=== PATIENT | female | born 1975 | race Caucasian/White ===

== ENCOUNTER 2018-05-28 14:54 | Emergency (ER) | payer OTHER, SELFPAY ==
[2018-05-28 15:13] VITALS: BP 140/82; PULSE 92; RESP 15; TEMP 36.5; O2SAT 100; BMI 39.9
[2018-05-28] MEDS: TET,DIPH,PERTUSS(ACELL),VAC/PF 0.5 ML SYRINGE IM (15:23)
--- NOTE | 2018-05-28 15:28 | ED_ITS ---
HPI - Wound/Laceration General Chief Complaint: Wound/Laceration Stated Complaint: LACERATION OF LEFT SIDE OF FACE NEAR LIP Time Seen by Provider: 05/28/18 15:14 Source: patient Mode of arrival: ambulatory Limitations: no limitations History of Present Illness HPI narrative: Patient is a 42-year-old female who presents with all lip laceration[place] and a noticeable hit her in the lip. No loose teeth. Bleeding is now controlled. Onset (ago): minute(s) Location: face Related Data Allergies Allergy/AdvReac Type Severity Reaction Status Date / Time No Known Drug Allergies Allergy Verified 05/28/18 15:13 Review of Systems Review of Systems GENERAL: Denies chills,fever HEENT: Denies throat pain RESPIRATORY: Denies dyspnea, cough, wheezing CARDIOVASCULAR: Denies chest pain, palpitations GASTROINTESTINAL: Denies nausea, vomiting MUSCULOSKELETAL: Denies extremity pain, injury SKIN: See HPI NEUROLOGIC: Denies weakness, dizziness, headache, numbness 8 point review of systems is negative except for those stated above and HPI PFSH Social History Smoking Status: Never smoker Exam Initial Vital Signs Initial Vital Signs: Vital Signs Temperature 97.7 F 05/28/18 15:13 Pulse Rate 92 H 05/28/18 15:13 Respiratory Rate 15 05/28/18 15:13 Blood Pressure 140/82 05/28/18 15:13 Pulse Oximetry 100 05/28/18 15:13 GENERAL: Well-appearing, well-nourished and in no acute distress. CARDIOVASCULAR: peripheral pulses in tact, cap refill <2 sec RESPIRATORY: No respiratory distress, speaks in full sentences without difficulty EXTREMITIES: Normal range of motion, no clubbing or edema. Neurovascularly intact NEUROLOGICAL: Cranial nerves II through XII grossly intact. Normal gait and speech. SKIN: Warm, dry, no petechiae, no rashes or lesions. Skin Lip and Oral Cavity: 2 1. 1 cm laceration through vermilion border. Does not go completely through Procedures Laceration Repair Laceration 1: Site: lip Side (If applicable): left Size (cm): 1 Description: linear and involves imer border Depth: simple, single layer Local Anesthetic: lidocaine 2% Amount of anesthesia used (mL): 1 Pre-repair: wound explored and irrigated extensively Skin layer closed with: other (Chromic gut) Size (cm): 6-0 Number of sutures: 2 Course Orders Ordered: Discontinued Medications Diphtheria/Tetanus/Acell Pertussis (Adacel) 0.5 ml IM .ONCE ONE Stop: 05/28/18 15:22 Last Admin: 05/28/18 15:23 Dose: 0.5 ml Vital Signs - 8 hr 05/28/18 15:13 Temperature 97.7 F Pulse Rate 92 H Respiratory Rate 15 Blood Pressure 140/82 Pulse Oximetry 100 Discharge Plan Departure Patient Disposition: Home Clinical Impression: Laceration of lip Instructions: DI for Laceration Repair Activity Restrictions/Additional Instructions: 1. Sutures should dissolve in 1-2 weeks, put Neosporin on it 1-2 times daily to help with and I 2. No soaking in water including dishes, bathtubs, Lakes, swimming pools etc -may clean with soap and water, may shower normal 3. Signs of infection include, but not limited to, increased redness, increased swelling, increased pain, fever and purulent drainage, if the symptoms should arise, you may need an antibiotic and you should have a reevaluation either by your primary care provider or by the emergency department. Referrals: Kristel Crook MD [Physician] -
[2018-05-28 16:22] VITALS: BP 110/72; PULSE 89; RESP 16; O2SAT 99
--- NOTE | 2018-06-02 16:15 | PC.NURSE ---
Pt is feeling much better following ED visit. Pt has nothing that we could improve on,pt states I have been to a lot of hospitals and you all took very good care of me.
== END 2018-05-28 16:24 | disposition home or self-care (01) ==
PROVIDERS: Emergency Provider Emergency Medicine
DX: S01.81XA Laceration without foreign body of other part of head, initial encounter (principal); W22.8XXA Striking against or struck by other objects, initial encounter
CPT/HCPCS: 12011; 90471; 99282; 99283; 90715

== ENCOUNTER 2019-02-03 17:13 | Emergency (ER) | payer OTHER, SELFPAY ==
[2019-02-03 17:31] VITALS: BP 134/81; PULSE 86; RESP 19; TEMP 36.8; O2SAT 100; BMI 44.2
[2019-02-03] MEDS: CYCLOBENZAPRINE 10 MG TABLET PO (17:40)
[2019-02-03] MEDS: KETOROLAC 60 MG/2 ML VIAL IM (17:40)
--- NOTE | 2019-02-03 17:48 | ED.BACK ---
HPI - Back Pain/Injury <RAFY Owens - Last Filed: 02/03/19 19:01> General Chief Complaint: Back Pain/Injury Stated Complaint: back pain Time Seen by Provider: 02/03/19 17:29 Source: patient Mode of arrival: ambulatory Limitations: no limitations History of Present Illness HPI Narrative: The patient is a 43-year-old female nonsmoker with history of hysterectomy who presents with a chief complaint of back pain. She states she is having pain on the sides of her back and the lumbar and thoracic region. She states she has been moving, heavy lifting her belongings over the past several days. She thinks she tweaked her back yesterday, and it was worse when she woke up today. She took ibuprofen this morning at 9:00 a.m. and Tylenol at 3:00 p.m. she has continued moving her belongings. She denies any numbness, tingling, incontinence, incontinence of bowel or bladder, saddle anesthesia. She denies any weakness. She states that standing up is more painful than lying flat on her back. She states twisting is painful. She denies any previous back injury. Related Data Home Medications Medication Instructions Recorded Confirmed Allergy 1 tab PO DAILY PRN 02/03/19 02/03/19 bupropion HCl 300 mg PO QAM 02/03/19 02/03/19 dextroamphetamine-amphetamine 30 mg PO BID 02/03/19 02/03/19 [Adderall XR] lamotrigine 150 mg PO DAILY 02/03/19 02/03/19 Previous Rx's Medication Instructions Recorded cyclobenzaprine 10 mg PO TID PRN #30 tab 02/03/19 ketorolac 10 mg PO QID PRN 5 Days #20 tab 02/03/19 Allergies Allergy/AdvReac Type Severity Reaction Status Date / Time Sulfa (Sulfonamide Allergy Verified 02/03/19 17:31 Antibiotics) Review of Systems <RAFY Owens - Last Filed: 02/03/19 19:01> Review of Systems GENERAL: Denies chills, fatigue, malaise, fever, sweats. HEENT: Denies sinus pain, ear pain, sore throat, difficulty swallowing, dizziness. RESPIRATORY: Denies dyspnea, cough, wheezing, hemoptysis, sputum. CARDIOVASCULAR: Denies chest pain, palpitations, orthopnea, edema, GASTROINTESTINAL: Denies nausea, vomiting, abdominal pain, diarrhea, constipation, melena. : Denies dysuria, frequency, incontinence, hematuria, urinary retention. MUSCULOSKELETAL: See HPI SKIN: Denies rash, skin lesions, or other NEUROLOGIC: Denies weakness, headache, numbness, change in speech, confusion, seizures, incoordination. PSYCHIATRIC: No concerning psychosocial issues. 12 point review of systems is negative except for those stated above PFSH <RAFY Owens - Last Filed: 02/03/19 19:01> Medical History (Updated 02/03/19 @ 18:19 by RAFY Owens) History of hysterectomy (Acute) Social History Smoking Status: Never smoker Social History Smoking Status: Never smoker Exam <RAFY Owens - Last Filed: 02/03/19 19:01> Narrative Exam Narrative: GENERAL: This is a well-nourished, well-developed patient, appears uncomfortable HEAD: Atraumatic. Normocephalic. No temporal or scalp tenderness. EYES: Pupils equal round and reactive. Extraocular motions intact. No scleral icterus. No injection or drainage. ENT: Nose without bleeding, purulent drainage or septal hematoma. Throat without erythema, tonsillar hypertrophy or exudate. Uvula midline. Airway patent. NECK: Trachea midline. No JVD or lymphadenopathy. Supple, nontender, no meningeal signs. CARDIOVASCULAR: Regular rate and rhythm without murmurs, gallops, or rubs. RESPIRATORY: Clear to auscultation. Breath sounds equal bilaterally. No wheezes, rales, or rhonchi. No cough. No increased respiratory effort. No accessory muscle use. GASTROINTESTINAL: Abdomen soft, non-tender, nondistended. No hepato-splenomegaly, or palpable masses. No guarding. EXTREMITIES: No clubbing, cyanosis, or edema. No joint tenderness, effusion, or edema noted. BACK: Nontender without deformity or crepitance. No flank tenderness. No pain to see T or L-spine palpation. Pain to bilateral paraspinal muscle palpation in lumbar region. NEURO: AOx3. SKIN: No rash or erythema. No erythema ecchymosis rash or abrasion noted on back Initial Vital Signs Initial Vital Signs: Vital Signs Temperature 98.3 F 02/03/19 17:31 Pulse Rate 86 02/03/19 17:31 Respiratory Rate 19 02/03/19 17:31 Blood Pressure 134/81 02/03/19 17:31 Pulse Oximetry 100 02/03/19 17:31 <Nandini Agarwal DO - Last Filed: 02/03/19 19:21> Initial Vital Signs Initial Vital Signs: Vital Signs Temperature 98.3 F 02/03/19 17:31 Pulse Rate 86 02/03/19 17:31 Respiratory Rate 19 02/03/19 17:31 Blood Pressure 134/81 02/03/19 17:31 Pulse Oximetry 100 02/03/19 17:31 Course <RAFY Owens - Last Filed: 02/03/19 19:01> Orders Ordered: Discontinued Medications Cyclobenzaprine HCl (Flexeril) 10 mg PO NOW ONE Stop: 02/03/19 17:38 Last Admin: 02/03/19 17:40 Dose: 10 mg Ketorolac Tromethamine (Toradol) 60 mg IM NOW ONE Stop: 02/03/19 17:38 Last Admin: 02/03/19 17:40 Dose: 60 mg Vital Signs - 8 hr 02/03/19 17:31 02/03/19 18:20 Temperature 98.3 F Pulse Rate 86 68 Respiratory Rate 19 17 Blood Pressure 134/81 Blood Pressure [Left Arm] 126/75 Pulse Oximetry 100 100 <Nandini Agarwal DO - Last Filed: 02/03/19 19:21> Orders Ordered: Discontinued Medications Cyclobenzaprine HCl (Flexeril) 10 mg PO NOW ONE Stop: 02/03/19 17:38 Last Admin: 02/03/19 17:40 Dose: 10 mg Ketorolac Tromethamine (Toradol) 60 mg IM NOW ONE Stop: 02/03/19 17:38 Last Admin: 02/03/19 17:40 Dose: 60 mg Vital Signs - 8 hr 02/03/19 17:31 02/03/19 18:20 Temperature 98.3 F Pulse Rate 86 68 Respiratory Rate 19 17 Blood Pressure 134/81 Blood Pressure [Left Arm] 126/75 Pulse Oximetry 100 100 MDM - Back Pain/Injury <RAFY Owens - Last Filed: 02/03/19 19:01> MDM Narrative Medical decision making narrative: The patient is a 43-year-old female who presents with mechanical back pain after bathing. She declines any x-rays, which I am okay with that she does not have any midline tenderness to palpation. She improved greatly with a dose of IM Toradol as well as Flexeril. She states her pain was much improved, and declined any further treatment in the ER. She does not want any narcotic or [place] prescriptions. I discussed at length return precautions of incontinence of bowel, incontinence of bladder or saddle anesthesia. Encourage patient to follow up with her PCP in the next few days. Discussed return precautions to ER. Patient has no questions or concerns upon discharge. Discharge Plan Departure Patient Disposition: Home Clinical Impression: Lumbar paraspinal muscle spasm Strain of lumbar region Qualifiers: Encounter type: initial encounter Qualified Code(s): S39.012A - Strain of muscle, fascia and tendon of lower back, initial encounter Discharge Date/Time: 02/03/19 18:27 Interventions: ED Discharge Assessment Last Done: 02/03/19 18:27 Instructions: DI for Back Spasm, DI for Back Strain or Sprain Activity Restrictions/Additional Instructions: Please follow up with your primary care provider in the next few days. I have given you a prescription of Toradol which is an NSAID. Do not combine with other NSAIDs. I have given her prescription of Flexeril, which is a muscle relaxer. Please come back to the emergency department for any acute concerns such as incontinence of bowel, incontinence of bladder or saddle anesthesia. Please follow up with your primary care provider in the next few days. Prescriptions: New cyclobenzaprine 10 mg tablet 10 mg PO TID PRN (Reason: muscle spasm) Qty: 30 RF: 0 ketorolac 10 mg tablet 10 mg PO QID PRN (Reason: pain) 5 Days Qty: 20 RF: 0 No Action Allergy 1 tab PO DAILY PRN (Reason: Allergy Symptoms) RF: 0 lamotrigine 150 mg Tablet 150 mg PO DAILY RF: 0 dextroamphetamine-amphetamine [Adderall XR] 30 mg Capsule,Extended Release 24hr 30 mg PO BID RF: 0 bupropion HCl 300 mg Tablet Extended Release 24 Hr 300 mg PO QAM RF: 0 Referrals: Kristel Crook MD [Physician] - <Nandini Agarwal DO - Last Filed: 02/03/19 19:21> Cosign ED Attending Cosignature Attestation: I was immediately available in the department for consultation. This documentation has been reviewed and I agree with assessment and plan. Supervised by Nandini Agarwal, DO
[2019-02-03 18:20] VITALS: BP 126/75; PULSE 68; RESP 17; O2SAT 100
== END 2019-02-03 18:27 | disposition home or self-care (01) ==
PROVIDERS: Emergency Provider Nurse Practitioner Family
DX: M62.830 Muscle spasm of back (principal); S39.012A Strain of muscle, fascia and tendon of lower back, initial encounter; X50.9XXA Other and unspecified overexertion or strenuous movements or postures, initial encounter
CPT/HCPCS: 96372; 99282; 99283; J1885

== ENCOUNTER 2022-03-17 18:54 | Emergency (ER) | payer OTHER, SELFPAY ==
[2022-03-17 19:26] VITALS: BP 132/87; PULSE 98; RESP 18; TEMP 37.1; O2SAT 97
[2022-03-17 20:07] LABS: COVID19 -Nasal RAPID POSITIVE (Negative)
--- NOTE | 2022-03-17 20:56 | ED_ITS ---
HPI - URI/Sore Throat General Chief Complaint: Upper Respiratory Symptoms Stated Complaint: COVID+ CHEST FEELS ON FIRE PRESSURE Time Seen by Provider: 03/17/22 20:47 Source: patient Mode of arrival: Ambulatory History of Present Illness HPI Narrative: 46-year-old female nonsmoker with history of ADHD presents with known COVID diagnosis in the chief complaint of multiple upper respiratory symptoms including runny nose, nasal congestion, sore throat any dry hacking cough. Her biggest concern today is not of any significant difficulty in breathing or sputum production but a burning sensation when she takes a deep breath. She is not dizzy nor weak or lightheaded. She denies GI symptoms such as nausea, vomiting or diarrhea Related Data Home Medications Medication Instructions Recorded Confirmed Allergy 1 tab PO DAILY PRN Allergy Symptoms 02/03/19 02/03/19 bupropion HCl 300 mg 24 hr tablet, 300 mg PO QAM 02/03/19 02/03/19 extended release dextroamphetamine-amphetamine ER 30 mg PO BID 02/03/19 02/03/19 30 mg 24hr capsule,extend release (Adderall XR) lamotrigine 150 mg tablet 150 mg PO DAILY 02/03/19 02/03/19 Previous Rx's Medication Instructions Recorded cyclobenzaprine 10 mg tablet 10 mg PO TID PRN muscle spasm #30 02/03/19 tabs Allergies Allergy/AdvReac Type Severity Reaction Status Date / Time Sulfa (Sulfonamide Allergy Verified 02/03/19 17:31 Antibiotics) Review of Systems Review of Systems Narrative: GENERAL: See HPI HEENT: See HPI RESPIRATORY: See HPI CARDIOVASCULAR: Denies chest pain, palpitations, orthopnea, edema, GASTROINTESTINAL: See HPI : Denies dysuria, frequency, incontinence, hematuria, urinary retention. MUSCULOSKELETAL: denies weakness, joint pain, or bony pain SKIN: Denies rash, skin lesions, or other NEUROLOGIC: Denies weakness, headache, numbness, change in speech, confusion, seizures, incoordination. PSYCHIATRIC: No concerning psychosocial issues. 12 point review of systems is negative except for those stated above Patient History Surgical History History of hysterectomy Social History Smoking Status: Never smoker Smoking Status: Never smoker alcohol intake frequency: 0-2 drinks per day Substance Use Type: does not use Exam Narrative Exam Narrative: GENERAL: [46] year old patient appears stated age. Well-developed patient, in mild distress. HEAD: Atraumatic. Normocephalic. EYES: Pupils equal round and reactive. Extraocular motions intact. No scleral icterus. No injection or drainage. ENT: Nose without bleeding, purulent drainage. Throat without erythema, tonsillar hypertrophy or exudate. Airway patent. NECK: Trachea midline. Non tender CARDIOVASCULAR: Regular rate and rhythm without murmurs, gallops, or rubs. RESPIRATORY: Clear to auscultation. Breath sounds equal bilaterally. No wheezes, rales, or rhonchi. GASTROINTESTINAL: Abdomen soft, non-tender, nondistended. EXTREMITIES: No edema or joint tenderness. BACK: Nontender without deformity or crepitance. No flank tenderness. NEURO: AOx3. SKIN: No rash or erythema of visible areas Initial Vital Signs Initial Vital Signs: Vital Signs Temperature 98.8 F 03/17/22 19:26 Pulse Rate 98 H 03/17/22 19:26 Respiratory Rate 18 03/17/22 19:26 Blood Pressure 132/87 03/17/22 19:26 Pulse Oximetry 97 03/17/22 19:26 Oxygen Delivery Method 03/17/22 19:26 Course Orders Ordered: ED Orders 03/17/22 19:32 COVID19 -Nasal RAPID/Pre-Proc Stat Vital Signs Vital signs: Vital Signs - 8 hr 03/17/22 19:26 Temperature 98.8 F Pulse Rate 98 H Respiratory Rate 18 Blood Pressure 132/87 Pulse Oximetry 97 Oxygen Delivery Method Room Air MDM - URI/Sore Throat Lab Data Labs: Lab Results 03/17/22 Range/Units 19:32 SARS-CoV-2 (PCR) Positive H (Negative) MDM Narrative Medical decision making narrative: Patient has a very reassuring history and physical exam with classic presentation of COVID. She has no respiratory distress, need for supplemental oxygen or significant GI symptoms. She is been given reassurance, return precautions discussed and questions answered to her apparent satisfaction Discharge Plan Departure Patient Disposition: Home Clinical Impression: COVID-19 Instructions: DI for COVID-19 (Suspected or Confirmed ) Activity Restrictions/Additional Instructions: *You have been diagnosed with [ COVID-19] *What to do: ?* per recommendations from the CDC and the [facility] Department of Health ?* stay home except to get medical care. ?Restrict activities outside your home, except for getting medical care. ?Do not go to work, school, or public areas. ?Avoid using public transportation, ride sharing, or taxis. ?* separate yourself from other people in your home. ?* call ahead before visiting your doctor ?* Wear a facemask ?* Cover your coughs and sneezes ?* Clean your hands often ?* Avoid sharing household items ?* Clean all high-touch services every day ?* Monitor your symptoms and seek prompt medical attention if your illness is worsening, particularly with difficulty in breathing. You may discontinue your isolation when: ?1. You have been fever-free for at least 24 hours without the use of fever reducing medication, AND ?2. Your symptoms are getting better, AND ?3. At least 5 days have passed since symptoms first appeared ?4. If you have fever, continue to stay home until fever resolves Individuals with laboratory confirmed COVID-19 who have not had any symptoms may discontinue home isolation when at least 5 days have passed since the date of their first COVID-19 diagnostic test and have had no subsequent illness You should notifiy any friends and family that have been in close contact *If up to date on COVID Vaccines, then they do not need to quarantine unless symptoms develop. Get tested on day 5 (or sooner if symptoms develop). Take precautions and watch for symptoms until day 10 *If NOT up to date on COVID Vaccines, then CDC recommends quarantine for at least 5 full days. Wear a well fitted mask at home if you must be around others. If they ?develop symptoms they should get tested. If they remain asymptomatic they should get tested on day 5. They should take precautions and monitor for symptoms until day 10. Prescriptions: No Action Allergy 1 tab PO DAILY PRN (Reason: Allergy Symptoms) lamotrigine 150 mg Tablet 150 mg PO DAILY dextroamphetamine-amphetamine [Adderall XR] 30 mg Capsule,Extended Release 24hr 30 mg PO BID bupropion HCl 300 mg Tablet Extended Release 24 Hr 300 mg PO QAM Rx Instructions: buproprion er (XL) cyclobenzaprine 10 mg tablet 10 mg PO TID PRN (Reason: muscle spasm) Qty: 30 0RF Visit Report Forms: Patient Portal/API
[2022-03-17 21:04] VITALS: BP 136/86; PULSE 88; RESP 18; O2SAT 100
== END 2022-03-17 21:06 | disposition home or self-care (01) ==
PROVIDERS: Emergency Provider Emergency Medicine
DX: U07.1 COVID-19 (principal)
CPT/HCPCS: 87635; 99281; 99282; C9803